=== PATIENT | female | born 1945 | race Caucasian/White ===

== ENCOUNTER 2017-04-03 13:50 | Inpatient (IN) | payer OTHER ==
[~2017-04-03] VITALS: Ht 160 cm; Wt 62.7 kg
[2017-04-03 14:29] LABS: HEMATOCRIT 25.8 % (36.0-46.0); MCH 32.9 PG (29.0-34.0); MCHC 32.6 G/DL (30.0-36.0); MCV 101.2 FL (83-99); MEAN PLAT.VOLUME 9.3 uM^3 (9.5-12.4); PLATELET COUNT 160 K/uL (156-360); RBC DIS.WIDTH-CV 13.3 % (11.8-14.6); RBC DIS.WIDTH-SD 49.2 % (39-53); WHITE BLOOD COUNT 4.3 K/uL (4.1-10.2)
[2017-04-03 14:31] LABS: RED BLOOD COUNT 2.55 M/uL (3.80-5.20)
[2017-04-03 14:40] LABS: INTER. NORMALIZED RATIO 0.9; PROTHROMBIN TIME 10.4 SEC (10.2-12.9)
[2017-04-03 14:40] LABS: CHLORIDE 106 mEq/L (99-109); POTASSIUM 5.2 mEq/L (3.7-5.4); SODIUM 136 mEq/L (136-147)
[2017-04-03 14:42] LABS: PTT 27.6 SEC (25-37)
[2017-04-03 14:43] LABS: ANION GAP 11 MEQ/L (2-14)
[2017-04-03 14:44] LABS: GLUCOSE 205 mg/dL (70-99)
[2017-04-03 14:46] LABS: GFR ESTIMATE (CALCULATED) 19 mL/min/
[2017-04-03 14:47] LABS: UREA NITROGEN (BUN) 54 mg/dL (9-23)
[2017-04-03 15:53] LABS: HEMATOCRIT 23.3 % (36.0-46.0); MCV 100.4 FL (83-99)
[2017-04-03] MEDS ORDERED: FLEET ENEMA-AD118 ML PR (17:02)
[2017-04-03] MEDS ORDERED: DULCOLAX10 MG PR (17:02)
[2017-04-03] MEDS ORDERED: MILK OF MAGN PO (17:02)
[2017-04-03] MEDS ORDERED: APRESOLINE50 MG PO (17:03)
[2017-04-03] MEDS ORDERED: FLUOXETINE HCL60 MG PO (17:04)
[2017-04-03] MEDS ORDERED: LOPRESSOR50 MG PO (17:04)
[2017-04-03] MEDS ORDERED: PRAVACHOL10 MG PO (17:05)
[2017-04-03] MEDS ORDERED: NORVASC10 MG PO (17:05)
[2017-04-03] MEDS ORDERED: TRADJENTA5 MG PO (17:05)
[2017-04-03] MEDS ORDERED: MELATONIN3 MG PO (17:06)
[2017-04-03] MEDS ORDERED: CIPRODEX OTIC7.5 ML LEFT EAR (17:08)
[2017-04-03] MEDS ORDERED: PROZAC20 MG PO (17:08)
[2017-04-03] MEDS ORDERED: LO-DOSE ASPIRIN81 M1 PO (17:09)
[2017-04-03] MEDS ORDERED: XANAX0.5 MG PO (17:09)
[2017-04-03] MEDS ORDERED: TYLENOL REGULA325 MG PO (17:10)
[2017-04-03 17:32] VITALS: BP 155/61
[2017-04-03 17:56] VITALS: BP 149/77
[2017-04-03 18:56] VITALS: BP 159/88
[2017-04-03 19:56] VITALS: BP 157/66
[2017-04-03 21:54] VITALS: BP 144/66
[2017-04-04] VITALS (13 sets, daily range): BP systolic 132–181; BP diastolic 58–86
[2017-04-04 05:58] LABS: POINT-OF-CARE METER ID UU13113774
[2017-04-04 06:12] LABS: HEMATOCRIT 29.6 % (36.0-46.0); MCH 31.7 PG (29.0-34.0); MCHC 32.8 G/DL (30.0-36.0); MCV 96.7 FL (83-99); MEAN PLAT.VOLUME 9.1 uM^3 (9.5-12.4); PLATELET COUNT 131 K/uL (156-360); RBC DIS.WIDTH-SD 57.3 % (39-53); RED BLOOD COUNT 3.06 M/uL (3.80-5.20)
[2017-04-04 06:33] LABS: ALKALINE PHOSPHATASE 55 IU/L (3-129); ANION GAP 7 MEQ/L (2-14); CHLORIDE 110 MEQ/L (99-109); GFR ESTIMATE (CALCULATED) 20 mL/min/; GLUCOSE 141 mg/dL (70-99); IRON 76 MCG/DL (35-150); POTASSIUM 5.1 MEQ/L (3.7-5.4); SAMPLE HEMOLYSIS CHECK 0; SAMPLE ICTERIC CHECK 0; SAMPLE LIPEMIA CHECK 0; SODIUM 138 MEQ/L (136-147); UREA NITROGEN (BUN) 59 mg/dL (9-23)
[2017-04-04 06:35] LABS: TOTAL BILIRUBIN 0.4 MG/DL (0.0-1.0)
[2017-04-04 11:34] LABS: POINT-OF-CARE METER ID UU13113774
[2017-04-04 13:25] LABS: HEMATOCRIT 30.9 % (36.0-46.0); MCV 95.1 FL (83-99)
[2017-04-04 16:46] LABS: POINT-OF-CARE METER ID UU13113774
[2017-04-04 18:40] LABS: HEMATOCRIT 32.7 % (36.0-46.0); MCV 94.8 FL (83-99)
[2017-04-04 21:20] LABS: POINT-OF-CARE METER ID UU13113774
[2017-04-05] VITALS (8 sets, daily range): BP systolic 152–166; BP diastolic 69–100
[2017-04-05 05:30] LABS: EOSINOPHIL (%) 2.6 % (0-5); EOSINOPHIL COUNT 0.1 K/uL (0-0.3); IMMATURE GRANULOCYTE (%) 1.3 % (0.0-0.7); INSTRUMENT ABS NEUTROPHIL CT 1.9 K/uL; LYMPHOCYTE COUNT 0.6 K/uL (1.0-2.8); MCH 31.1 PG (29.0-34.0); MCHC 33.4 G/DL (30.0-36.0); MEAN PLAT.VOLUME 8.9 uM^3 (9.5-12.4); MONOCYTE (%) 16.3 % (3-12); MONOCYTE COUNT 0.5 K/uL (0-0.8); NEUTROPHIL (%) 61.6 % (45-76); NEUTROPHIL COUNT 1.9 K/uL (1.8-6.4); PLATELET COUNT 112 K/uL (156-360); RBC DIS.WIDTH-CV 16.2 % (11.8-14.6); RBC DIS.WIDTH-SD 55.1 % (39-53); RED BLOOD COUNT 3.44 M/uL (3.80-5.20); WHITE BLOOD COUNT 3.1 K/uL (4.1-10.2)
[2017-04-05 05:33] LABS: HEMATOCRIT 31.9 % (36.0-46.0); MCH 30.8 PG (29.0-34.0); MCHC 33.2 G/DL (30.0-36.0); MCV 92.7 FL (83-99); MEAN PLAT.VOLUME 8.7 uM^3 (9.5-12.4); PLATELET COUNT 122 K/uL (156-360); RED BLOOD COUNT 3.44 M/uL (3.80-5.20)
[2017-04-05 05:34] LABS: HEMATOCRIT 31.9 % (36.0-46.0); MCV 92.7 FL (83-99)
[2017-04-05 05:54] LABS: POINT-OF-CARE METER ID UU13113774
[2017-04-05 05:56] LABS: ANION GAP 6 MEQ/L (2-14); CHLORIDE 107 MEQ/L (99-109); GFR ESTIMATE (CALCULATED) 23 mL/min/; GLUCOSE 148 mg/dL (70-99); POTASSIUM 5.1 MEQ/L (3.7-5.4); SAMPLE HEMOLYSIS CHECK 0; SAMPLE ICTERIC CHECK 0; SAMPLE LIPEMIA CHECK 0; SODIUM 136 MEQ/L (136-147); UREA NITROGEN (BUN) 48 mg/dL (9-23)
[2017-04-05 07:49] LABS: INTACT PARATHYROID HORMONE 149 pg/mL (10-69)
[2017-04-05 08:28] LABS: ADD MIUA? YES; BILIRUBIN NEGATIVE; BLOOD SMALL; COLOR STRAW ((YELLOW)); GLUCOSE (STRIP) 50; KETONES NEGATIVE; LEUKOCYTES MODERATE; NITRITE NEGATIVE; PROTEIN (STRIP) 100; UROBILINOGEN 0.2 MG/DL (0.2-1.0)
[2017-04-05 08:45] LABS: BACTERIA NONE SEEN /HPF; BUDDING YEAST RARE; EPITHELIAL CELLS RARE /HPF; MUCUS NONE SEEN /LPF; RED BLOOD CELLS 20-30 /HPF (0-5); WHITE BLOOD CELLS 40-50 /HPF (0-5)
[2017-04-05 08:56] LABS: UR CREATININE CONCENTRATION 28.3 MG/DL
[2017-04-05 11:37] LABS: POINT-OF-CARE METER ID UU14107333
[2017-04-05 15:03] LABS: HEMATOCRIT 35.8 % (36.0-46.0)
[2017-04-05 16:34] LABS: POINT-OF-CARE METER ID UU13113774
[2017-04-05 17:58] LABS: HEMATOCRIT 33.4 % (36.0-46.0)
[2017-04-05 20:48] LABS: POINT-OF-CARE METER ID UU13113774
[2017-04-06 00:47] LABS: HEMATOCRIT 31.2 % (36.0-46.0); MCV 92.3 FL (83-99)
[2017-04-06 04:19] VITALS: BP 177/80; BP 96/52
[2017-04-06 06:03] LABS: POINT-OF-CARE METER ID UU13113725
[2017-04-06 06:22] LABS: HEMATOCRIT 33.5 % (36.0-46.0); MCH 30.2 PG (29.0-34.0); MCHC 32.8 G/DL (30.0-36.0); MEAN PLAT.VOLUME 8.4 uM^3 (9.5-12.4); PLATELET COUNT 121 K/uL (156-360); RBC DIS.WIDTH-CV 15.3 % (11.8-14.6); RBC DIS.WIDTH-SD 51.9 % (39-53); RED BLOOD COUNT 3.64 M/uL (3.80-5.20); WHITE BLOOD COUNT 3.1 K/uL (4.1-10.2)
[2017-04-06 06:44] LABS: ANION GAP 6 MEQ/L (2-14); CHLORIDE 107 MEQ/L (99-109); GFR ESTIMATE (CALCULATED) 21 mL/min/; GLUCOSE 143 mg/dL (70-99); POTASSIUM 4.5 MEQ/L (3.7-5.4); SAMPLE HEMOLYSIS CHECK 0; SAMPLE ICTERIC CHECK 0; SAMPLE LIPEMIA CHECK 0; SODIUM 137 MEQ/L (136-147); UREA NITROGEN (BUN) 43 mg/dL (9-23)
[2017-04-06 08:29] VITALS: BP 171/77
[2017-04-06 11:43] LABS: POINT-OF-CARE METER ID UU13113725
[2017-04-06 12:10] LABS: HEMATOCRIT 37.2 % (36.0-46.0); MCV 92.5 FL (83-99)
[2017-04-06 15:30] VITALS: BP 116/83
[2017-04-06 16:03] LABS: POINT-OF-CARE METER ID UU13113725
[2017-04-06 17:46] LABS: HEMATOCRIT 34.3 % (36.0-46.0); MCV 92.7 FL (83-99)
[2017-04-06 19:20] VITALS: BP 150/71
[2017-04-06 20:39] LABS: POINT-OF-CARE METER ID UU13113725
[2017-04-06 23:29] VITALS: BP 124/78
[2017-04-07] VITALS (7 sets, daily range): BP systolic 132–179; BP diastolic 72–97
[2017-04-07 06:20] LABS: POINT-OF-CARE METER ID UU13113774
[2017-04-07 06:24] LABS: HEMATOCRIT 33.1 % (36.0-46.0); MCH 30.8 PG (29.0-34.0); MCHC 33.2 G/DL (30.0-36.0); MCV 92.7 FL (83-99); MEAN PLAT.VOLUME 9.1 uM^3 (9.5-12.4); PLATELET COUNT 120 K/uL (156-360); RBC DIS.WIDTH-CV 15.1 % (11.8-14.6); RBC DIS.WIDTH-SD 51.7 % (39-53); RED BLOOD COUNT 3.57 M/uL (3.80-5.20); WHITE BLOOD COUNT 3.4 K/uL (4.1-10.2)
[2017-04-07 07:04] LABS: ANION GAP 6 MEQ/L (2-14); CHLORIDE 107 MEQ/L (99-109); GFR ESTIMATE (CALCULATED) 20 mL/min/; GLUCOSE 170 mg/dL (70-99); POTASSIUM 4.9 MEQ/L (3.7-5.4); SAMPLE HEMOLYSIS CHECK 0; SAMPLE ICTERIC CHECK 0; SAMPLE LIPEMIA CHECK 0; SODIUM 136 MEQ/L (136-147); UREA NITROGEN (BUN) 51 mg/dL (9-23)
[2017-04-07 12:08] LABS: POINT-OF-CARE METER ID UU13113725
[2017-04-07 16:35] LABS: POINT-OF-CARE METER ID UU13113774
[2017-04-07 21:42] LABS: POINT-OF-CARE METER ID UU13113725
[2017-04-08 04:50] VITALS: BP 160/65
[2017-04-08 05:57] LABS: POINT-OF-CARE METER ID UU13113774
[2017-04-08 06:11] LABS: MCH 30.8 PG (29.0-34.0); MCV 93.2 FL (83-99); MEAN PLAT.VOLUME 8.7 uM^3 (9.5-12.4); PLATELET COUNT 120 K/uL (156-360); RBC DIS.WIDTH-CV 14.8 % (11.8-14.6); RBC DIS.WIDTH-SD 51.8 % (39-53); RED BLOOD COUNT 3.54 M/uL (3.80-5.20)
[2017-04-08 06:48] LABS: ALKALINE PHOSPHATASE 58 IU/L (3-129); ANION GAP 7 MEQ/L (2-14); CHLORIDE 106 MEQ/L (99-109); GFR ESTIMATE (CALCULATED) 20 mL/min/; GLUCOSE 174 mg/dL (70-99); POTASSIUM 4.3 MEQ/L (3.7-5.4); SAMPLE HEMOLYSIS CHECK 0; SAMPLE ICTERIC CHECK 0; SAMPLE LIPEMIA CHECK 0; SODIUM 137 MEQ/L (136-147); UREA NITROGEN (BUN) 46 mg/dL (9-23)
[2017-04-08 06:49] LABS: TOTAL BILIRUBIN 0.2 MG/DL (0.0-1.0)
[2017-04-08 08:04] VITALS: BP 159/69
[2017-04-08 10:40] LABS: POINT-OF-CARE METER ID UU13113774
[2017-04-08 11:33] VITALS: BP 152/70
[2017-04-08 15:41] LABS: POINT-OF-CARE METER ID UU13113774
[2017-04-08 21:34] LABS: POINT-OF-CARE METER ID UU13113725
[2017-04-09 00:03] VITALS: BP 145/68
[2017-04-09 05:33] LABS: POINT-OF-CARE METER ID UU13113725
[2017-04-09 06:40] VITALS: BP 165/73
[2017-04-09 11:56] LABS: POINT-OF-CARE METER ID UU13113774
== END 2017-04-09 12:45 | DRG 378 ==
LOC: EME 13:50 → EDOF 19:50 → 5EAST 19:50 → ENRESERV 19:51 → 5EAST 21:27
PROVIDERS: Emergency Medicine; Internal Medicine; Internal Medicine Gastroenterology; Internal Medicine Nephrology
PROC: 30233N1 Transfusion of Nonautologous Red Blood Cells into Peripheral Vein, Percutaneous Approach (ICD-10-PCS; principal; 2017-04-05)
PROC: 0DB78ZX Excision of Stomach, Pylorus, Via Natural or Artificial Opening Endoscopic, Diagnostic (ICD-10-PCS; 2017-04-05)
DX: K92.2 Gastrointestinal hemorrhage, unspecified (principal); N17.9 Acute kidney failure, unspecified; D50.0 Iron deficiency anemia secondary to blood loss (chronic); E11.21 Type 2 diabetes mellitus with diabetic nephropathy; N13.30 Unspecified hydronephrosis; I12.0 Hypertensive chronic kidney disease with stage 5 chronic kidney disease or end stage renal disease; G30.9 Alzheimer's disease, unspecified; I48.91 Unspecified atrial fibrillation; N18.4 Chronic kidney disease, stage 4 (severe); F32.9 Major depressive disorder, single episode, unspecified; E78.5 Hyperlipidemia, unspecified; E11.22 Type 2 diabetes mellitus with diabetic chronic kidney disease; N39.0 Urinary tract infection, site not specified; D61.818 Other pancytopenia; K55.9 Vascular disorder of intestine, unspecified; F02.80 Dementia in other diseases classified elsewhere, unspecified severity, without behavioral disturbance, psychotic disturbance, mood disturbance, and anxiety; K80.20 Calculus of gallbladder without cholecystitis without obstruction; E55.9 Vitamin D deficiency, unspecified; W19.XXXA Unspecified fall, initial encounter; Z87.891 Personal history of nicotine dependence; Z87.11 Personal history of peptic ulcer disease; Y92.009 Unspecified place in unspecified non-institutional (private) residence as the place of occurrence of the external cause; Z83.3 Family history of diabetes mellitus; Z87.440 Personal history of urinary (tract) infections
CPT/HCPCS: 74176; 80048; 80053; 80069; 81003; 82306; 82570; 82607; 82728; 82746; 82948; 83540; 83970; 84156; 84466; 85014; 85018; 85025; 85027; 85610; 85730; 86850; 86900; 86901; 86920; 87086; 87106; 88305; 88342 TC; 99281; 99285; C9113; J1815; J7030; P9016

== ENCOUNTER 2017-05-31 15:18 | Inpatient (IN) | payer OTHER ==
[~2017-05-31] VITALS: Ht 160 cm; Wt 37.0 kg
[~2017-05-31 15:18] MED LIST: APRESOLINE50 MG PO; CIPRODEX OTIC7.5 ML LEFT EAR; DULCOLAX10 MG PR; FLEET ENEMA-AD118 ML PR; FLUOXETINE HCL60 MG PO; LO-DOSE ASPIRIN81 M1 PO; LOPRESSOR50 MG PO; MELATONIN3 MG PO; MILK OF MAGN PO; NORVASC10 MG PO; PRAVACHOL10 MG PO; PROZAC20 MG PO; TRADJENTA5 MG PO; TYLENOL REGULA325 MG PO; XANAX0.5 MG PO
[2017-05-31 16:29] LABS: HEMOGLOBIN 7.5 G/DL (11.9-15.5); MCH 31.3 PG (29.0-34.0); MCHC 34.1 G/DL (30.0-36.0); MCV 91.7 FL (83-99); PLATELET COUNT 123 K/uL (156-360); WHITE BLOOD COUNT 3.1 K/uL (4.1-10.2)
[2017-05-31 16:34] LABS: INTER. NORMALIZED RATIO 0.9
[2017-05-31 16:37] LABS: ALBUMIN 3.3 g/dL (3.2-4.8); CHLORIDE 104 mEq/L (99-109); PTT 29.3 SEC (25-37)
[2017-05-31 16:38] LABS: POTASSIUM 4.5 mEq/L (3.7-5.4); SODIUM 134 mEq/L (136-147)
[2017-05-31 16:40] LABS: GLUCOSE 224 mg/dL (70-99); TOTAL PROTEIN 5.1 g/dL (6.4-8.3)
[2017-05-31 16:42] LABS: TOTAL BILIRUBIN 0.2 mg/dL (0.0-1.0)
[2017-05-31 16:43] LABS: ALKALINE PHOSPHATASE 74 IU/L (3-129); CREATININE 2.5 mg/dL (0.6-1.3); GFR ESTIMATE (CALCULATED) 20 mL/min/
[2017-05-31 16:45] LABS: AST (GOT) 14 IU/L (2-34); UREA NITROGEN (BUN) 59 mg/dL (9-23)
[2017-05-31 16:46] LABS: ALT (GPT) 13 IU/L (3-49)
[2017-05-31] MEDS ORDERED: BAYER CHEWABLE81 MG PO (18:52)
[2017-05-31] MEDS ORDERED: PROZAC20 MG PO (18:55)
[2017-05-31] MEDS ORDERED: APRESOLINE50 MG PO (18:57)
[2017-05-31] MEDS ORDERED: ANTIVERT25 MG PO (18:59)
[2017-05-31] MEDS ORDERED: PRILOSEC20 MG PO (19:02)
[2017-05-31] MEDS ORDERED: PRAVACHOL10 MG PO (19:03)
[2017-05-31] MEDS ORDERED: TRAZODONE HCL50 MG PO (19:06)
[2017-05-31] MEDS ORDERED: CALCIUM 600 +1 EA17 PO (19:12)
[2017-05-31] MEDS ORDERED: METOPROLOL TART75 MG PO (19:19)
[2017-05-31] MEDS ORDERED: FEOSOL325 MG PO (19:20)
[2017-05-31 21:49] VITALS: BP 188/78
[2017-05-31 22:49] VITALS: BP 190/86
[2017-05-31 23:43] VITALS: BP 178/92
[2017-06-01 01:06] LABS: HEMATOCRIT 25.2 % (36.0-46.0); HEMOGLOBIN 8.7 G/DL (11.9-15.5); MCV 89.7 FL (83-99)
[2017-06-01 04:47] VITALS: BP 154/72
[2017-06-01 06:37] LABS: HEMATOCRIT 25.7 % (36.0-46.0); HEMOGLOBIN 8.7 G/DL (11.9-15.5); MCV 89.9 FL (83-99)
[2017-06-01 08:05] VITALS: BP 112/65
[2017-06-01 10:46] LABS: HEMATOCRIT 26.6 % (36.0-46.0); HEMOGLOBIN 8.8 G/DL (11.9-15.5); MCV 89.9 FL (83-99)
[2017-06-01 15:52] LABS: HEMOGLOBIN 9.4 G/DL (11.9-15.5); MCV 90.3 FL (83-99)
[2017-06-01 16:18] VITALS: BP 131/74
[2017-06-01 20:58] VITALS: BP 191/81
[2017-06-01 21:58] LABS: HEMATOCRIT 24.6 % (36.0-46.0); HEMOGLOBIN 8.3 G/DL (11.9-15.5); MCV 89.1 FL (83-99)
[2017-06-01 23:10] VITALS: BP 120/58
[2017-06-02 03:06] VITALS: BP 178/72
[2017-06-02 07:48] VITALS: BP 128/61
[2017-06-02 11:14] VITALS: BP 130/65
[2017-06-02 16:09] VITALS: BP 165/95
[2017-06-02 18:04] LABS: HEMATOCRIT 25.7 % (36.0-46.0); HEMOGLOBIN 8.7 G/DL (11.9-15.5); MCH 30.6 PG (29.0-34.0); MCHC 33.9 G/DL (30.0-36.0); MCV 90.5 FL (83-99); PLATELET COUNT 113 K/uL (156-360); RBC DIS.WIDTH-CV 14.9 % (11.8-14.6); RBC DIS.WIDTH-SD 49.4 % (39-53); RED BLOOD COUNT 2.84 M/uL (3.80-5.20)
[2017-06-02 18:14] VITALS: BP 174/72
[2017-06-02 20:40] VITALS: BP 171/81
[2017-06-03 00:28] VITALS: BP 166/78
[2017-06-03 06:55] LABS: HEMATOCRIT 26.7 % (36.0-46.0); HEMOGLOBIN 8.9 G/DL (11.9-15.5); MCH 30.1 PG (29.0-34.0); MCHC 33.3 G/DL (30.0-36.0); MCV 90.2 FL (83-99); PLATELET COUNT 133 K/uL (156-360); RBC DIS.WIDTH-CV 14.8 % (11.8-14.6); RBC DIS.WIDTH-SD 49.2 % (39-53); RED BLOOD COUNT 2.96 M/uL (3.80-5.20); WHITE BLOOD COUNT 3.1 K/uL (4.1-10.2)
[2017-06-03 08:25] VITALS: BP 122/57
[2017-06-03 15:17] VITALS: BP 192/89
[2017-06-04] VITALS (9 sets, daily range): BP systolic 158–209; BP diastolic 73–88
[2017-06-04 07:09] LABS: HEMATOCRIT 26.5 % (36.0-46.0); MCH 30.9 PG (29.0-34.0); MCV 91.1 FL (83-99); PLATELET COUNT 126 K/uL (156-360); RBC DIS.WIDTH-CV 14.5 % (11.8-14.6); RBC DIS.WIDTH-SD 48.7 % (39-53); RED BLOOD COUNT 2.91 M/uL (3.80-5.20); WHITE BLOOD COUNT 3.2 K/uL (4.1-10.2)
[2017-06-04 07:21] LABS: ALBUMIN 3.1 G/DL (3.2-4.8); CHLORIDE 103 MEQ/L (99-109); GFR ESTIMATE (CALCULATED) 26 mL/min/; GLUCOSE 210 mg/dL (70-99); PHOSPHORUS 3.3 mg/dL (2.5-4.9); POTASSIUM 3.7 MEQ/L (3.7-5.4); SODIUM 135 MEQ/L (136-147); UREA NITROGEN (BUN) 36 mg/dL (9-23)
[2017-06-04] MEDS ORDERED: FLUCONAZOLE100 MG PO (11:47)
[2017-06-04] MEDS ORDERED: PROTONIX40 MG PO (11:49)
[2017-06-05] VITALS (13 sets, daily range): BP systolic 145–200; BP diastolic 63–92
[2017-06-05 06:04] LABS: HEMATOCRIT 25.2 % (36.0-46.0); HEMOGLOBIN 8.7 G/DL (11.9-15.5); MCH 30.9 PG (29.0-34.0); MCHC 34.5 G/DL (30.0-36.0); MCV 89.4 FL (83-99); PLATELET COUNT 115 K/uL (156-360); RBC DIS.WIDTH-CV 14.3 % (11.8-14.6); RBC DIS.WIDTH-SD 46.5 % (39-53); RED BLOOD COUNT 2.82 M/uL (3.80-5.20); WHITE BLOOD COUNT 3.1 K/uL (4.1-10.2)
[2017-06-05 06:52] LABS: ALBUMIN 3.2 G/DL (3.2-4.8); CHLORIDE 102 MEQ/L (99-109); CREATININE 2.2 MG/DL (0.6-1.3); GFR ESTIMATE (CALCULATED) 23 mL/min/; GLUCOSE 193 mg/dL (70-99); POTASSIUM 3.7 MEQ/L (3.7-5.4); SODIUM 135 MEQ/L (136-147); UREA NITROGEN (BUN) 37 mg/dL (9-23)
[2017-06-05 20:58] LABS: IRON 44 MCG/DL (35-150); TRANSFERRIN (TIBC) 154.9 mg/dL (215-380); TRANSFERRIN SATUR. 28 % (20-55)
[2017-06-06 03:24] VITALS: BP 132/64
[2017-06-06 07:39] VITALS: BP 141/67
[2017-06-06 08:03] LABS: CHLORIDE 102 MEQ/L (99-109); GFR ESTIMATE (CALCULATED) 18 mL/min/; GLUCOSE 213 mg/dL (70-99); MAGNESIUM 1.6 mg/dl (1.3-2.7); POTASSIUM 3.8 MEQ/L (3.7-5.4); SODIUM 135 MEQ/L (136-147); UREA NITROGEN (BUN) 42 mg/dL (9-23)
[2017-06-06 08:08] LABS: CREATININE 2.7 MG/DL (0.6-1.3)
[2017-06-06 15:06] VITALS: BP 112/59
[2017-06-06 17:23] VITALS: BP 108/54
[2017-06-06 20:06] VITALS: BP 105/52
[2017-06-06 21:09] VITALS: BP 114/57
[2017-06-07] VITALS (7 sets, daily range): BP systolic 120–173; BP diastolic 66–86
[2017-06-07 06:58] LABS: ABSOLUTE RETICULOCYTE CT. 0.1 M/uL (0.02-0.08); IMM.RETIC FRACTION 5.6 % (3-19); RETIC HGB EQUIVALENT 34.9 (28-36); RETICULOCYTE COUNT 2.2 % (0.5-1.8)
[2017-06-07 08:38] LABS: A/G RATIO 1.9 (1.1-1.8); ALBUMIN 3.1 G/DL (3.4-5.0); C-REACTIVE PROTEIN 3.8 MG/L (0-10); CHLORIDE 102 MEQ/L (99-109); GFR ESTIMATE (CALCULATED) 14 mL/min/; GLOBULINS 1.6 G/DL (2.3-3.5); GLUCOSE 239 mg/dL (70-99); POTASSIUM 3.9 MEQ/L (3.7-5.4); SODIUM 135 MEQ/L (136-147); TOTAL PROTEIN 4.7 G/DL (6.4-8.2); UREA NITROGEN (BUN) 52 mg/dL (9-23)
[2017-06-07 08:40] LABS: CREATININE 3.5 MG/DL (0.6-1.3)
[2017-06-07 16:08] LABS: CHLORIDE 103 MEQ/L (99-109); CREATININE 3.6 MG/DL (0.6-1.3); GFR ESTIMATE (CALCULATED) 13 mL/min/; GLUCOSE 248 mg/dL (70-99); POTASSIUM 4.3 MEQ/L (3.7-5.4); SODIUM 134 MEQ/L (136-147); UREA NITROGEN (BUN) 57 mg/dL (9-23)
[2017-06-07] MEDS ORDERED: LABETALOL HCL200 MG PO (22:05)
[2017-06-08] VITALS (7 sets, daily range): BP systolic 130–202; BP diastolic 60–86
[2017-06-08 07:25] LABS: CHLORIDE 104 MEQ/L (99-109); CREATININE 3.4 MG/DL (0.6-1.3); GFR ESTIMATE (CALCULATED) 14 mL/min/; GLUCOSE 209 mg/dL (70-99); POTASSIUM 3.6 MEQ/L (3.7-5.4); SODIUM 134 MEQ/L (136-147); UREA NITROGEN (BUN) 54 mg/dL (9-23)
[2017-06-08 10:22] LABS: HEMATOCRIT 22.2 % (36.0-46.0); HEMOGLOBIN 7.3 G/DL (11.9-15.5); MCH 30.2 PG (29.0-34.0); MCHC 32.9 G/DL (30.0-36.0); MCV 91.7 FL (83-99); PLATELET COUNT 123 K/uL (156-360); RBC DIS.WIDTH-CV 14.6 % (11.8-14.6); RBC DIS.WIDTH-SD 49.4 % (39-53); RED BLOOD COUNT 2.42 M/uL (3.80-5.20); WHITE BLOOD COUNT 3.1 K/uL (4.1-10.2)
[2017-06-08 17:18] LABS: APPEARANCE CLOUDY ((CLEAR)); BILIRUBIN NEGATIVE; BLOOD SMALL; COLOR YELLOW ((YELLOW)); GLUCOSE (STRIP) 50; KETONES NEGATIVE; LEUKOCYTES LARGE; NITRITE NEGATIVE; PROTEIN (STRIP) 100; SPECIFIC GRAVITY 1.009 (1.000-1.030); UROBILINOGEN 0.2 MG/DL (0.2-1.0)
[2017-06-08 17:32] LABS: EPITHELIAL CELLS 2+ /HPF; MUCUS NONE SEEN /LPF; RED BLOOD CELLS 0-5 /HPF (0-5)
[2017-06-08 17:33] LABS: BACTERIA 4+ /HPF; UCUL ADDED? YES; WHITE BLOOD CELLS TNTC /HPF (0-5)
[2017-06-09] VITALS (10 sets, daily range): BP systolic 133–199; BP diastolic 66–91
[2017-06-09 06:49] LABS: HEMATOCRIT 23.1 % (36.0-46.0); HEMOGLOBIN 7.6 G/DL (11.9-15.5); MCH 30.3 PG (29.0-34.0); MCHC 32.9 G/DL (30.0-36.0); PLATELET COUNT 129 K/uL (156-360); RBC DIS.WIDTH-CV 14.6 % (11.8-14.6); RBC DIS.WIDTH-SD 49.9 % (39-53); RED BLOOD COUNT 2.51 M/uL (3.80-5.20); WHITE BLOOD COUNT 3.7 K/uL (4.1-10.2)
[2017-06-09 07:19] LABS: ALBUMIN 3.3 G/DL (3.2-4.8); ALKALINE PHOSPHATASE 70 IU/L (3-129); ALT (GPT) 12 IU/L (3-49); AST (GOT) 14 IU/L (2-34); CHLORIDE 103 MEQ/L (99-109); CREATININE 3.1 MG/DL (0.6-1.3); GFR ESTIMATE (CALCULATED) 16 mL/min/; GLUCOSE 213 mg/dL (70-99); POTASSIUM 4.1 MEQ/L (3.7-5.4); SODIUM 134 MEQ/L (136-147); TOTAL BILIRUBIN 0.3 MG/DL (0.0-1.0); UREA NITROGEN (BUN) 54 mg/dL (9-23)
[2017-06-10 06:03] LABS: HEMATOCRIT 28.3 % (36.0-46.0); HEMOGLOBIN 9.5 G/DL (11.9-15.5); MCH 30.5 PG (29.0-34.0); MCHC 33.6 G/DL (30.0-36.0); PLATELET COUNT 124 K/uL (156-360); RBC DIS.WIDTH-CV 14.4 % (11.8-14.6); RBC DIS.WIDTH-SD 47.8 % (39-53); WHITE BLOOD COUNT 2.9 K/uL (4.1-10.2)
[2017-06-10 06:08] LABS: RED BLOOD COUNT 3.11 M/uL (3.80-5.20)
[2017-06-10 06:28] LABS: ALBUMIN 3.4 G/DL (3.2-4.8); CHLORIDE 102 MEQ/L (99-109); GFR ESTIMATE (CALCULATED) 19 mL/min/; GLUCOSE 232 mg/dL (70-99); PHOSPHORUS 3.2 mg/dL (2.5-4.9); SODIUM 132 MEQ/L (136-147); UREA NITROGEN (BUN) 46 mg/dL (9-23)
[2017-06-10 06:29] LABS: CREATININE 2.6 MG/DL (0.6-1.3)
[2017-06-10 07:30] VITALS: BP 190/86
[2017-06-10 09:00] VITALS: BP 130/66
[2017-06-10 14:22] LABS: RENIN ACTIVITY 0.26 ng/mL/h (0.25-5.82)
[2017-06-10 15:20] VITALS: BP 200/98
[2017-06-10 16:06] VITALS: BP 200/98
[2017-06-10 21:20] VITALS: BP 181/85
[2017-06-10 23:42] VITALS: BP 158/76
[2017-06-11 07:13] LABS: ALBUMIN 3.4 G/DL (3.2-4.8); CHLORIDE 102 MEQ/L (99-109); CREATININE 2.7 MG/DL (0.6-1.3); GFR ESTIMATE (CALCULATED) 18 mL/min/; GLUCOSE 210 mg/dL (70-99); PHOSPHORUS 3.6 mg/dL (2.5-4.9); POTASSIUM 4.4 MEQ/L (3.7-5.4); SODIUM 135 MEQ/L (136-147); UREA NITROGEN (BUN) 42 mg/dL (9-23)
[2017-06-11 07:21] VITALS: BP 173/77
[2017-06-11 14:42] LABS: ALBUMIN 2.88 G/DL (3.6-4.9); ALPHA-1 GLOBULIN 0.29 G/DL (0.15-0.40); ALPHA-2 GLOBULIN 0.57 G/DL (0.45-0.85); BETA-GLOBULIN 0.51 G/DL (0.65-1.15); GAMMA-GLOBULIN 0.45 G/DL (0.60-1.35)
[2017-06-11 16:00] VITALS: BP 183/81
[2017-06-11 16:03] VITALS: BP 185/84
[2017-06-11 23:03] VITALS: BP 131/70
[2017-06-12 07:03] LABS: ALBUMIN 3.4 G/DL (3.2-4.8); CHLORIDE 101 MEQ/L (99-109); GFR ESTIMATE (CALCULATED) 16 mL/min/; GLUCOSE 184 mg/dL (70-99); PHOSPHORUS 3.8 mg/dL (2.5-4.9); POTASSIUM 4.1 MEQ/L (3.7-5.4); SODIUM 134 MEQ/L (136-147); UREA NITROGEN (BUN) 50 mg/dL (9-23)
[2017-06-12 07:16] LABS: MCH 30.6 PG (29.0-34.0); MCHC 33.3 G/DL (30.0-36.0); MCV 91.8 FL (83-99); PLATELET COUNT 141 K/uL (156-360); RBC DIS.WIDTH-CV 14.3 % (11.8-14.6); RBC DIS.WIDTH-SD 48.7 % (39-53); RED BLOOD COUNT 2.94 M/uL (3.80-5.20); WHITE BLOOD COUNT 3.1 K/uL (4.1-10.2)
[2017-06-12 07:47] LABS: ABS NEUTROPHIL COUNT 1.9; ANISOCYTOSIS 1+; ATYPICAL LYMPHOCYTE 4.4 %; BAND NEUTROPHILS 0.9 % (0-8.0); BASOPHILS 2.6 %; EOSINOPHIL ABS CT 0.1; EOSINOPHILS 2.6 % (0-5.0); HEMATOLOGY COMMENT 1 SN; LYMPHOCYTES 23.7 % (15.0-45.0); MONOCYTES 5.3 % (0-9.0); PLAT.SUFFICIENCY ADEQUATE; SEG.NEUTROPHILS 60.5 % (46.0-76.0)
[2017-06-12 07:59] VITALS: BP 110/54
[2017-06-12 12:30] VITALS: BP 104/50
[2017-06-12 12:45] VITALS: BP 106/52
[2017-06-12 16:16] VITALS: BP 114/57
[2017-06-12 21:00] VITALS: BP 124/64
[2017-06-13] VITALS (7 sets, daily range): BP systolic 113–156; BP diastolic 58–70
[2017-06-13 07:10] LABS: ALBUMIN 3.3 G/DL (3.2-4.8); CHLORIDE 102 MEQ/L (99-109); CREATININE 3.5 MG/DL (0.6-1.3); GFR ESTIMATE (CALCULATED) 14 mL/min/; GLUCOSE 153 mg/dL (70-99); PHOSPHORUS 4.3 mg/dL (2.5-4.9); POTASSIUM 4.3 MEQ/L (3.7-5.4); SODIUM 132 MEQ/L (136-147); UREA NITROGEN (BUN) 62 mg/dL (9-23)
[2017-06-14 07:46] VITALS: BP 120/58
[2017-06-14] MEDS ORDERED: NIFEDIPINE ER30 MG PO (15:33)
[2017-06-14] MEDS ORDERED: VITAMIN D-32000 UNI2 PO (15:33)
[2017-06-14] MEDS ORDERED: LABETALOL HCL200 MG PO (15:33)
[2017-06-14] MEDS ORDERED: PANTOPRAZOLE SO40 MG PO (15:33)
[2017-06-14] MEDS ORDERED: JANUVIA25 MG PO (15:33)
[2017-06-14] MEDS ORDERED: VITAMIN B12 100MCG PO (15:33)
[2017-06-14] MEDS ORDERED: Tylenol Extra Streng PO (15:33)
[2017-06-14] MEDS ORDERED: LANTUS 10100 UNITS/ SC (15:33)
[2017-06-14] MEDS ORDERED: FLUOXETINE HCL20 MG PO (15:33)
[2017-06-14] MEDS ORDERED: PRAVASTATIN SOD40 MG PO (15:33)
[2017-06-14] MEDS ORDERED: TRADJENTA5 MG PO (15:39)
[2017-06-14 16:33] VITALS: BP 160/70
[2017-06-14 16:52] LABS: GLUCOSE 78 mg/dL (70-99)
== END 2017-06-14 18:25 | DRG 378 ==
LOC: DELPENDDIS → EME 15:18 → 5EAST 19:37 → EDOF 19:37 → ENRESERV 19:41 → 5EAST 20:27 → ENPENDDIS 06-04 15:30 → 5EAST 06-14 18:25
PROVIDERS: Emergency Medicine; Family Medicine; Internal Medicine; Internal Medicine Gastroenterology; Internal Medicine Hematology & Oncology; Internal Medicine Nephrology
PROC: 30233N1 Transfusion of Nonautologous Red Blood Cells into Peripheral Vein, Percutaneous Approach (ICD-10-PCS; 2017-05-31)
PROC: 0DB78ZX Excision of Stomach, Pylorus, Via Natural or Artificial Opening Endoscopic, Diagnostic (ICD-10-PCS; 2017-06-03)
PROC: 07DR3ZX Extraction of Iliac Bone Marrow, Percutaneous Approach, Diagnostic (ICD-10-PCS; principal; 2017-06-12)
DX: K29.01 Acute gastritis with bleeding (principal); B37.81 Candidal esophagitis; D61.818 Other pancytopenia; I48.0 Paroxysmal atrial fibrillation; E11.22 Type 2 diabetes mellitus with diabetic chronic kidney disease; N39.0 Urinary tract infection, site not specified; K92.0 Hematemesis; K26.9 Duodenal ulcer, unspecified as acute or chronic, without hemorrhage or perforation; F02.80 Dementia in other diseases classified elsewhere, unspecified severity, without behavioral disturbance, psychotic disturbance, mood disturbance, and anxiety; G30.9 Alzheimer's disease, unspecified; N13.30 Unspecified hydronephrosis; E78.5 Hyperlipidemia, unspecified; D63.1 Anemia in chronic kidney disease; F41.8 Other specified anxiety disorders; I95.1 Orthostatic hypotension; R33.8 Other retention of urine; N18.3 Chronic kidney disease, stage 3 (moderate); N31.9 Neuromuscular dysfunction of bladder, unspecified; N27.1 Small kidney, bilateral; I16.0 Hypertensive urgency; E55.9 Vitamin D deficiency, unspecified; N25.81 Secondary hyperparathyroidism of renal origin; E87.1 Hypo-osmolality and hyponatremia; R79.89 Other specified abnormal findings of blood chemistry; F32.9 Major depressive disorder, single episode, unspecified; I12.9 Hypertensive chronic kidney disease with stage 1 through stage 4 chronic kidney disease, or unspecified chronic kidney disease; Z87.891 Personal history of nicotine dependence; Z87.11 Personal history of peptic ulcer disease; Z79.899 Other long term (current) drug therapy; Z83.3 Family history of diabetes mellitus
CPT/HCPCS: 36415; 76770; 77012; 80048; 80048 91; 80053; 80069; 81003; 82088 90; 82607; 82948; 83540; 83735; 83883 90; 84165; 84244 90; 84466; 84999; 85007; 85014; 85018; 85025; 85027; 85046; 85610; 85652; 85730; 86140; 86334; 86850; 86870; 86900; 86901; 86905; 86920; 86999; 87077; 87086; 87186; 88305; 88342 TC; 93005; 93306; 93975; 99281; 99285; A6214; C9113; J0360; J0696; J1756; J1815; J1940; J2405; J3010; J7040; J7042; J7050; P9016

== ENCOUNTER 2017-11-22 11:51 | Day surgery (SDC) | payer OTHER ==
[~2017-11-22] VITALS: Ht 160 cm; Wt 53.8 kg
[~2017-11-22 11:51] MED LIST changes: +ANTIVERT25 MG PO; +ARANESP40 MCG/0.4 IV; +BASAGLAR K100 UNIT/1 SC; +BAYER CHEWABLE81 MG PO; +CALCIUM 600 +1 EA17 PO; +FEOSOL325 MG PO; +FLUCONAZOLE100 MG PO; +FLUOXETINE HCL20 MG PO; +IMODIUM MS REL1 EACH PO; +JANUVIA25 MG PO; +LABETALOL HCL200 MG PO; +LANTUS 10100 UNITS/ SC; +METOPROLOL TART75 MG PO; +MIRTAZAPINE7.5 MG PO; +NIFEDIPINE ER30 MG PO; +NON-ASPIRIN PA500 M1 PO; +OMEPRAZOLE20 MG PO; +PANTOPRAZOLE SO40 MG PO; +PRAVASTATIN SOD40 MG PO; +PRILOSEC20 MG PO; +PROTONIX40 MG PO; +ROCALTROL0.25 MCG PO; +SALINE ENEMA PR; +TRAZODONE HCL50 MG PO; +Tylenol Extra Streng PO; +VITAMIN B-121000 MC3 PO; +VITAMIN B12 100MCG PO; +VITAMIN D-32000 UNI2 PO; +VITAMIN D2000 UNI1 PO; +VITAMIN D32000 UNI1 PO; +VITRON C PO; +VITRON-C TABLE1 EACH PO
[2017-11-22 12:27] LABS: HEMATOCRIT 30.2 % (36.0-46.0); HEMOGLOBIN 10.2 G/DL (11.9-15.5); MCH 32.1 PG (29.0-34.0); MCHC 33.8 G/DL (30.0-36.0); PLATELET COUNT 136 K/uL (156-360); RBC DIS.WIDTH-SD 45.2 % (39-53); RED BLOOD COUNT 3.18 M/uL (3.80-5.20); WHITE BLOOD COUNT 3.5 K/uL (4.1-10.2)
[2017-11-22 12:35] LABS: CHLORIDE 109 mEq/L (99-109); POTASSIUM 4.9 mEq/L (3.7-5.4); SODIUM 139 mEq/L (136-147)
[2017-11-22 12:36] LABS: GLUCOSE 176 mg/dL (70-99)
[2017-11-22 12:40] LABS: GFR ESTIMATE (CALCULATED) 16 mL/min/
[2017-11-22 12:41] LABS: UREA NITROGEN (BUN) 58 mg/dL (9-23)
[2017-11-22 13:25] VITALS: BP 197/88
[2017-11-22] MEDS ORDERED: NORCO 5/3251 TABLET PO (17:02)
[2017-11-22 17:45] VITALS: BP 168/88
[2017-11-22 18:56] VITALS: BP 149/68
== END 2017-11-22 19:00 ==
LOC: SDC 11:51
PROVIDERS: Surgery
DX: I12.9 Hypertensive chronic kidney disease with stage 1 through stage 4 chronic kidney disease, or unspecified chronic kidney disease (principal); E11.22 Type 2 diabetes mellitus with diabetic chronic kidney disease; N18.4 Chronic kidney disease, stage 4 (severe); Z87.440 Personal history of urinary (tract) infections; F41.1 Generalized anxiety disorder; F32.9 Major depressive disorder, single episode, unspecified; I25.10 Atherosclerotic heart disease of native coronary artery without angina pectoris; I48.91 Unspecified atrial fibrillation; D63.8 Anemia in other chronic diseases classified elsewhere; E78.00 Pure hypercholesterolemia, unspecified; K21.9 Gastro-esophageal reflux disease without esophagitis; E21.3 Hyperparathyroidism, unspecified; Z83.3 Family history of diabetes mellitus; Z84.1 Family history of disorders of kidney and ureter; Z80.8 Family history of malignant neoplasm of other organs or systems; Z72.0 Tobacco use
CPT/HCPCS: 80048; 82948; 85027; 87641; J0360; J1644; J3010